=== PATIENT | male | born 1975 | race Caucasian/White ===

== ENCOUNTER 2020-05-16 13:39 | Emergency (ER) | payer SELFPAY ==
[~2020-05-16] VITALS: Ht 185.4 cm; Wt 74.8 kg
[2020-05-16 13:44] VITALS: BP 119/74
--- NOTE | 2020-05-16 14:10 | NUR ---
Patient a/ox4, ambulatory with steady gait. No distress noted. Breathing even and unlabored. No sob noted.
--- NOTE | 2020-05-16 14:46 | NUR ---
Patient eloped from facility. ER MD notified.
== END 2020-05-16 14:48 | disposition left against medical advice (07) ==
LOC: ER 13:44
DX: F41.9 Anxiety disorder, unspecified (principal); Z53.21 Procedure and treatment not carried out due to patient leaving prior to being seen by health care provider